=== PATIENT | female | born 1975 | race Native Hawaiian/Other Pacific Islander ===

== ENCOUNTER → 2016-12-09 | Outpatient (CLI) | payer BC ==
--- NOTE | 2016-12-09 11:58 | ECHOS ---
DATE OF SERVICE: 12/09/2016 AGE: 41Y SEX: F HT: 62" WT: 216 lbs. Protocol Dylan: X Others: Stress Echo Stage: 3 Dur. of Exercise: 6:45 *Heart Rate Blood Pressure *Rest: 81 Rest: 146/80 * *Max. Achieved: 141 Maximum BP: 213/74 85% PMHR: 151 100% PMHR: 178 *METS: 7.7 INDICATIONS: Chest pain. MEDICATIONS: Januvia, lisinopril, atenolol, hydrochlorothiazide, pioglitazone. Baseline EKG revealed a normal sinus rhythm without significant ST-T changes. There was some nonspecific T-wave flattening in leads V1 to V3 with poor R-wave progression. Patient walked on a standard Dylan protocol for 6 minutes 45 seconds. Resting heart rate was 80 beats per minute. Blood pressure was 146/80. With exercise, she had a hypertensive response and a peak blood pressure was 213/74. Her maximal heart rate was 141 beats, which is less than 85% of predicted maximal. She developed fatigue and shortness of breath and therefore stress test was stopped. She achieved about 80% of her predicted maximum heart rate. EKG did not reveal any ST segment changes to indicate ischemia. By EKG criteria, this is an inconclusive stress test because of inadequate chronotropic response with no evidence of ischemia at a heart rate of 80% of predicted maximal. Baseline echo images revealed normal wall motion and wall thickening of all segments. At peak exercise, there was good augmentation of left ventricular wall motion and wall thickening of all segments suggesting that there is no evidence of stress-induced ischemia. However, patient achieved only 80% of predicted maximal. FINAL IMPRESSION: 1. Inconclusive stress by EKG criteria without angina. 2. Inconclusive stress echocardiogram without evidence of ischemia at a heart rate of 80% of predicted maximal.
== END | disposition home or self-care (01) ==
LOC: RADNMMAIN 09:57
PROVIDERS: ATTEND Family Medicine
DX: R07.9 Chest pain, unspecified (principal)
CPT/HCPCS: 93017; 93350

== ENCOUNTER 2018-06-06 06:51 | Day surgery (SDC) | payer BC ==
[2018-06-05 09:46] VITALS: BMI 45.6
[~2018-06-06 06:51] MED LIST: LACTATED RINGERS 1,000 ML IV SCH
[2018-06-06 07:10] VITALS: TEMP 98.1
[2018-06-06 07:21] LABS: Glucose,Whole Blood 157 mg/dL (75-99)
[2018-06-06] MEDS ORDERED: MIDAZOLAM 2 MG/2 ML VIAL ONE (07:43)
[2018-06-06] MEDS ORDERED: LIDOCAINE 1% INJ 10MG/ML (20 ML MDV) ONE (07:43)
[2018-06-06] MEDS ORDERED: PROPOFOL 10 MG/ML 20 ML VIAL IV ONE (07:43)
[2018-06-06 08:12] VITALS: RESP 16
--- NOTE | 2018-06-06 08:15 | P.PCN ---
Date of Procedure: 06/06/18 Procedure(s) Performed: Procedure: Total colonoscopy. Preoperative diagnosis: Suspected diverticulitis. Postoperative diagnosis: Exam within normal limits. Preparation: HalfLytely prep. Sedation: Was provided by anesthesia. Brief clinical history: The patient is a 43-year-old female who is referred for this evaluation because of abdominal pain is for suspected diverticulitis. She had no prior colonoscopy. She had some changes in bowel habits with occasional loose stools but no bleeding or other alarm symptoms. No family history of colon cancer. Procedure: With the patient on her left lateral decubitus position and after informed consent and adequate sedation, the perianal area was inspected and it did not show any fissures or fistulas. There were no masses felt on digital rectal examination. The Olympus CFQ 160L video colonoscope was then inserted in the rectum in the usual fashion and advanced to the cecum. The mucosa appeared healthy. No polyps or tumors were seen. No obvious diverticular disease or other pathology. I retroflexed the endoscope in the rectum before the endoscope was withdrawn. The patient tolerated the procedure well. Plan: The patient was reassured. Will continue dietary measures and symptomatic treatment. Further plans based on her course. For screening for colon cancer, I recommended repeat exam in 10 years.
[2018-06-06 08:52] VITALS: BP 138/82; PULSE 54
== END 2018-06-06 09:05 | disposition home or self-care (01) ==
LOC: ORWHC2ENDO 06:51
DX: R10.9 Unspecified abdominal pain (principal); E11.9 Type 2 diabetes mellitus without complications; I10 Essential (primary) hypertension; Z79.84 Long term (current) use of oral hypoglycemic drugs; Z79.899 Other long term (current) drug therapy
CPT/HCPCS: 81025; 45378; J2250; J2001; J2704

== ENCOUNTER → 2019-01-05 | Outpatient (CLI) | payer BC ==
--- NOTE | 2019-01-05 10:21 | CT ---
EXAMINATION TYPE: CT abdomen pelvis wo con DATE OF EXAM: 01/05/2019 HISTORY: Right ovarian cyst and dysuria per order. Right lower quadrant pain per patient. CT DLP: 917.6 mGycm. Automated Exposure Control for Dose Reduction was Utilized. TECHNIQUE: CT scan of the abdomen and pelvis is performed without oral or IV contrast. COMPARISON: Abdominal and pelvic ultrasound February 10, 2018 FINDINGS: Within the limitations of a non-contrast study, the following observations are made. LUNG BASES: No significant abnormality is appreciated. LIVER/GB: No significant abnormality is appreciated. PANCREAS: No significant abnormality is seen. SPLEEN: No significant abnormality is seen. ADRENALS: No significant abnormality is seen. KIDNEYS: No renal calculi or hydronephrosis is present bilaterally. No intraluminal calculus is seen in poorly distended bladder on current study. BOWEL: Normal-appearing appendix is seen from base of cecum in the upper right pelvis extending media lly. There is no suspicious small or large bowel dilatation on current study. GENITAL ORGANS: Anteverted uterus is seen. Both ovaries are present and not strictly enlarged in size . There is some prominence of the lower uterine segment and cervix near axial image 128 should be cor related with direct physical exam and Pap smear LYMPH NODES: No greater than 1cm abdominal or pelvic lymph nodes are appreciated. OSSEOUS STRUCTURES: No significant abnormality is seen. OTHER: Horizontal density over the lower pelvis coronal image 29 likely reflects scar. IMPRESSION: 1. No renal stones or hydronephrosis is seen bilaterally. 2. Ovaries normal in size on current study without suspicious adnexal mass. 3. Prominence of lower uterine segment/cervix should be correlated with physical exam and/or Pap smea r, otherwise unremarkable study.
== END | disposition home or self-care (01) ==
LOC: RADCTMAIN 06:39
PROVIDERS: ATTEND Family Medicine
DX: R30.0 Dysuria (principal)
CPT/HCPCS: 74176

== ENCOUNTER → 2019-01-30 | Outpatient (CLI) | payer BC ==
--- NOTE | 2019-01-31 17:52 | ECHOF ---
Referral Reason:I10 Essential hypertension,I16.0 Hypertensive urge MEASUREMENTS -------- HEIGHT: 175.3 cm WEIGHT: 95.3 kg BP: RVIDd: 3.1 cm (< 3.3) IVSd: 0.9 cm (0.6 - 1.1) LVIDd: 3.9 cm (3.9 - 5.3) LVPWd: 1.0 cm (0.6 - 1.1) IVSs: 1.1 cm LVIDs: 2.6 cm LVPWs: 1.2 cm LAESV Index (A-L): 23.16 ml/m Ao Diam: 3.6 cm (2.0 - 3.7) AV Cusp: 1.9 cm (1.5 - 2.6) LA Diam: 2.9 cm (2.7 - 3.8) EPSS: 1.0 cm MV E Patricio: 0.58 m/s MV DecT: 323 ms MV A Patricio: 0.91 m/s MV E/A Ratio: 0.63 RAP: 5.00 mmHg RVSP: 9.69 mmHg MV EF SLOPE: 54.23 mm/s (70 - 150) MV EXCURSION: 1.41 cm (> 18.000) FINDINGS -------- Sinus rhythm. This was a technically adequate study. The left ventricular size is normal. There is mild concentric left ventricular hypertrophy. Overa ll left ventricular systolic function is normal with, an EF between 55 - 60 %. The right ventricle is normal in size and function. Normal LA size by volume 22+/-6 ml/m2. The right atrium is normal in size. There is mild aortic valve sclerosis. There is no evidence of aortic regurgitation. There is no e vidence of aortic stenosis. The mitral valve leaflets are mildly thickened. There is trace to mild mitral regurgitation. Trace tricuspid regurgitation present. Right ventricular systolic pressure is normal at < 35 mmHg. There is no evidence of pulmonary hypertension. The pulmonic valve was not well visualized. The aortic root size is normal. Normal inferior vena cava with normal inspiratory collapse consistent with estimated right atrial pre ssure of 5 mmHg. There is no pericardial effusion. CONCLUSIONS -------- 1. Sinus rhythm. 2. This was a technically adequate study. 3. The left ventricular size is normal. 4. There is mild concentric left ventricular hypertrophy. 5. Overall left ventricular systolic function is normal with, an EF between 55 - 60 %. 6. Normal LA size by volume 22+/-6 ml/m2. 7. There is mild aortic valve sclerosis. 8. The mitral valve leaflets are mildly thickened. 9. There is trace to mild mitral regurgitation. 10. Trace tricuspid regurgitation present. 11. Right ventricular systolic pressure is normal at < 35 mmHg. 12. There is no evidence of pulmonary hypertension. 13. The pulmonic valve was not well visualized. 14. The aortic root size is normal. 15. There is no pericardial effusion. TRUCK SWITCHER: Sravan Haque RDCS
== END ==
LOC: RADECHMAIN 13:07
PROVIDERS: ATTEND Family Medicine
DX: I11.9 Hypertensive heart disease without heart failure (principal); I34.0 Nonrheumatic mitral (valve) insufficiency; I35.8 Other nonrheumatic aortic valve disorders
CPT/HCPCS: 93306

== ENCOUNTER → 2019-12-25 | Outpatient (CLI) | payer BC ==
--- NOTE | 2019-12-25 15:08 | US ---
EXAMINATION TYPE: US kidneys/renal and bladder DATE OF EXAM: 12/25/2019 COMPARISON: CT 01/05/19, US 02/10/18 CLINICAL HISTORY: N39.0 Urinary tract infection, site not specified. EXAM MEASUREMENTS: Right Kidney: 13.6 x 6.1 x 5.0 cm Left Kidney: 12.5 x 6.3 x 5.5 cm Post Void Residual Volume: 0 mL Right Kidney: No hydronephrosis or masses seen Left Kidney: No hydronephrosis or masses seen Bladder: Some internal debris Bilateral Jets seen: Yes Normal Post Void Residual: Yes There is no evidence for hydronephrosis at this point in time. No nephrolithiasis is seen. No mario alberto s are identified. The urinary bladder is somewhat difficult to visualize and appears to have interna l debris. Bilateral ureteral jets are seen. IMPRESSION: Internal debris within the urinary bladder, likely on the basis of this patient's known c ystitis. No hydronephrosis or nephrolithiasis.
== END | disposition home or self-care (01) ==
LOC: RADUSWWP 11:07
PROVIDERS: ATTEND Urology
DX: N39.0 Urinary tract infection, site not specified (principal)
CPT/HCPCS: 76770

== ENCOUNTER 2023-04-03 12:51 | Emergency (ER) | payer BC ==
[2023-04-03 13:02] VITALS: RESP 18
[2023-04-03 13:34] LABS: Appearance,Urine Clear (Clear); Bilirubin,Urine Negative (Negative); Blood,Urine Negative (Negative); Color,Urine Light Yellow; Glucose,Urine (UA) Negative (Negative); Ketones,Urine Negative (Negative); Leukocyte Esterase,Urine Negative (Negative); Nitrite,Urine Negative (Negative); Protein,Urine Negative (Negative); Specific Gravity,Urine 1.005 (1.001-1.035); Urobilinogen,Urine <2.0 mg/dL (<2.0)
[2023-04-03] MEDS ORDERED: ORPHENADRINE 30 MG/ML 2 ML VIAL IVP STA (13:46)
[2023-04-03] MEDS ORDERED: KETOROLAC 15 MG/ML 1 ML VIAL IVP STA (13:46)
--- NOTE | 2023-04-03 13:56 | ED ---
Abdominal Pain HPI - General Chief Complaint: Abdominal Pain Stated Complaint: R thigh pain Time Seen by Provider: 04/03/23 13:35 Source: patient, RN notes reviewed Mode of arrival: ambulatory Limitations: no limitations - History of Present Illness Initial Comments: This is a 48-year-old female who presents to the emergency department for right groin pain. States that this started 2-3 days ago. Yesterday she started to develop diarrhea, but believes that this may be related to the new diabetic medication she just started. Pain is described as sharp and she has difficulty moving her right leg because of this. She denies taking anything to treat her symptoms. Denies any history of similar symptoms the past. Denies any injuries or recent strenuous activities. Denies any fevers, chills, sore throat, cough, dyspnea, chest pain, pal pitations, abdominal pain, nausea, vomiting, diarrhea, back pain, or headaches. MD Complaint: other (Right groin pain) Onset/Timin -: days(s) - Related Data Home Medications Medication Instructions Recorded Confirmed Atenolol (Unknown Dose) 50 mg PO DAILY 06/05/18 06/06/18 Ibuprofen [Motrin Ib] 800 mg PO BID PRN 06/05/18 06/06/18 Lisinopril-Hctz 20-25 mg 1 tab PO DAILY 06/05/18 06/06/18 [Zestoretic 20-25] metFORMIN HCL [Glucophage] 1,000 mg PO BID 06/05/18 06/06/18 Previous Rx's Medication Instructions Recorded Baclofen 5 mg PO TID PRN #20 tablet 04/03/23 Ketorolac [Toradol] 10 mg PO Q6HR PRN #12 tab 04/03/23 Allergies Allergy/AdvReac Type Severity Reaction Status Date / Time No Known Allergies Allergy Verified 04/03/23 13:02 Review of Systems ROS Statement: Those systems with pertinent positive or pertinent negative responses have been documented in the HPI. ROS Other: All systems not noted in ROS Statement are negative. Past Medical History Past Medical History: Diabetes Mellitus, Hypertension Additional Past Medical History / Comment(s): STATES PAIN RIGHT SIDE ABDOMEN. History of Any Multi-Drug Resistant Organisms: None Reported Past Surgical History: Section, Uterine Ablation Additional Past Surgical History / Comment(s): D & C Past Anesthesia/Blood Transfusion Reactions: No Reported Reaction Past Psychological History: No Psychological Hx Reported Smoking Status: Never smoker Past Alcohol Use History: None Reported Past Drug Use History: None Reported - Past Family History Mother Family Medical History: No Reported History General Exam Limitations: no limitations General appearance: alert, in distress Head exam: Present: atraumatic, normocephalic, normal inspection Respiratory exam: Present: normal lung sounds bilaterally. Absent: respiratory distress, wheezes, rales, rhonchi, stridor Cardiovascular Exam: Present: regular rate, normal rhythm, normal heart sounds. Absent: systolic murmur, diastolic murmur, rubs, gallop, clicks GI/Abdominal exam: Present: soft, tenderness (Right groin), normal bowel sounds. Absent: distended, guarding, rebound, rigid, hernia Neurological exam: Present: alert, oriented X3, CN II-XII intact Psychiatric exam: Present: normal affect, normal mood Skin exam: Present: warm, dry, intact, normal color. Absent: rash Course Vital Signs 04/03/23 04/03/23 04/03/23 12:59 15:01 16:02 Temperature 98 F 64 F L Pulse Rate 68 99 67 Respiratory 18 18 Rate Blood Pressure 125/85 103/72 108/70 O2 Sat by Pulse 98 99 Oximetry Medical Decision Making - Medical Decision Making This is a 48-year-old female who presents to the emergency department for right groin pain. Was pt. sent in by a medical professional or institution? @ -No Did you speak to anyone other than the patient for history? @ -No Did you review nursing and triage notes? @ -I disagree with how long the pain has been there, patient told me it has only been there for 2-3 days. Were old charts reviewed? @ -No Differential Diagnosis? @ -Differential Groin Pain: Hernia, muscle strain, UTI, ureteral calculus, this is not meant to be an all- inclusive list. What testing was considered but not performed? (CT, X-rays, U/S, labs)? Why? @ -None What meds were considered but not given? Why? @ -None Did you discuss the management of the patient with other professionals? @ -No Did you reconcile home meds? @ -No Was smoking cessation discussed for >3mins.? @ -No Was critical care preformed (if so, how long)? @ -No Were there social determinants of health that impacted care today? How? (Homelessness, low income, unemployed, alcoholism, drug addiction, t ransportation, low edu. Level, literacy, decrease access to med. care, fci, rehab)? @ -No Was there de-escalation of care discussed even if they declined? (Discuss DNR or withdrawal of care, Hospice)? @ -No What co-morbidities impacted this encounter? (DM, HTN, Smoking, COPD, CAD, Cancer, CVA, Hep., AIDS, mental health diagnosis, sleep apnea, morbid obesity)? @ -Morbid obesity Was patient admitted / discharged? @ -Discharged. Lab work obtained and found to be nonactionable. Urinalysis negative for signs of infection. Ultrasound of the right groin obtained revealing no acute findings. Symptoms were well controlled with Toradol and Norflex. Based on the location and description of her symptoms, this is most likely related to a muscle strain. Prescription for Toradol and baclofen provided with dosing instructions reviewed. Patient is instructed to take the Toradol with Tylenol if needed and avoid any other [id number] anti- inflammatories such as ibuprofen with the Toradol. Advised that the baclofen is sedating and she should avoid driving or operating machinery when taking this. She will otherwise follow up with her PCP for reevaluation of symptoms. Undiagnosed new problem with uncertain prognosis? @ -None Drug Therapy requiring intensive monitoring for toxicity (Heparin, Nitro, Insulin, Cardizem)? @ -None Were any procedures done? @ -None Diagnosis/symptom? @ -Right groin strain Acute, or Chronic, or Acute on Chronic? @ -Acute Uncomplicated (without systemic symptoms) or Complicated (systemic symptoms)? @ -Uncomplicated Side effects of treatment? @ -None Exacerbation, Progression, or Severe Exacerbation] @ -Not applicable Poses a threat to life or bodily function? @ -No Return precautions reviewed in depth, the patient is instructed to return to the emergency department with any new, worsening, or concerning symptoms. Patient verbalized understanding. This case was discussed in detail with the attending ED physician, Dr. Lujan. Presentation, findings, and treatment plan discussed in detail as well. - Lab Data Result diagrams: 04/03/23 13:54 04/03/23 13:54 Lab Results 04/03/23 04/03/23 04/03/23 Range/Units 13:17 13:54 13:54 WBC 5.0 (3.8-10.6) k/uL RBC 4.98 (3.80-5.40) m/uL Hgb 12.3 (11.4-16.0) gm/dL Hct 39.3 (34.0-46.0) % MCV 78.9 L (80.0-100.0) fL MCH 24.7 L (25.0-35.0) pg MCHC 31.3 (31.0-37.0) g/dL RDW 14.8 (11.5-15.5) % Plt Count 238 (150-450) k/uL MPV 7.8 Neutrophils % 69 % Lymphocytes % 22 % Monocytes % 4 % Eosinophils % 3 % Basophils % 1 % Neutrophils # 3.4 (1.3-7.7) k/uL Lymphocytes # 1.1 (1.0-4.8) k/uL Monocytes # 0.2 (0-1.0) k/uL Eosinophils # 0.1 (0-0.7) k/uL Basophils # 0.0 (0-0.2) k/uL Sodium 139 (137-145) mmol/L Potassium 3.3 L (3.5-5.1) mmol/L Chloride 102 (98-107) mmol/L Carbon Dioxide 27 (22-30) mmol/L Anion Gap 10 mmol/L BUN 12 (7-17) mg/dL Creatinine 0.39 L (0.52-1.04) mg/dL Est GFR (CKD-EPI)AfAm >90 (>60 ml/min/1.73 sqM) Est GFR (CKD-EPI)NonAf >90 (>60 ml/min/1.73 sqM) Glucose 145 H (74-99) mg/dL Plasma Lactic Acid Tenzin (0.7-2.0) mmol/L Calcium 9.5 (8.4-10.2) mg/dL Total Bilirubin 0.5 (0.2-1.3) mg/dL AST 24 (14-36) U/L ALT 36 H (4-34) U/L Alkaline Phosphatase 104 (38-126) U/L Total Protein 7.0 (6.3-8.2) g/dL Albumin 4.1 (3.5-5.0) g/dL Urine Color Light Yellow Urine Appearance Clear (Clear) Urine pH 5.0 (5.0-8.0) Ur Specific [place] 1.005 (1.001-1.035) Urine Protein Negative (Negative) Urine Glucose (UA) Negative (Negative) Urine Ketones Negative (Negative) Urine Blood Negative (Negative) Urine Nitrite Negative (Negative) Urine Bilirubin Negative (Negative) Urine Urobilinogen <2.0 (<2.0) mg/dL Ur Leukocyte Esterase Negative (Negative) 04/03/23 Range/Units 13:54 WBC (3.8-10.6) k/uL RBC (3.80-5.40) m/uL Hgb (11.4-16.0) gm/dL Hct (34.0-46.0) % MCV (80.0-100.0) fL MCH (25.0-35.0) pg MCHC (31.0-37.0) g/dL RDW (11.5-15.5) % Plt Count (150-450) k/uL MPV Neutrophils % % Lymphocytes % % Monocytes % % Eosinophils % % Basophils % % Neutrophils # (1.3-7.7) k/uL Lymphocytes # (1.0-4.8) k/uL Monocytes # (0-1.0) k/uL Eosinophils # (0-0.7) k/uL Basophils # (0-0.2) k/uL Sodium (137-145) mmol/L Potassium (3.5-5.1) mmol/L Chloride (98-107) mmol/L Carbon Dioxide (22-30) mmol/L Anion Gap mmol/L BUN (7-17) mg/dL Creatinine (0.52-1.04) mg/dL Est GFR (CKD-EPI)AfAm (>60 ml/min/1.73 sqM) Est GFR (CKD-EPI)NonAf (>60 ml/min/1.73 sqM) Glucose (74-99) mg/dL Plasma Lactic Acid Tenzin 1.3 (0.7-2.0) mmol/L Calcium (8.4-10.2) mg/dL Total Bilirubin (0.2-1.3) mg/dL AST (14-36) U/L ALT (4-34) U/L Alkaline Phosphatase (38-126) U/L Total Protein (6.3-8.2) g/dL Albumin (3.5-5.0) g/dL Urine Color Urine Appearance (Clear) Urine pH (5.0-8.0) Ur Specific [place] (1.001-1.035) Urine Protein (Negative) Urine Glucose (UA) (Negative) Urine Ketones (Negative) Urine Blood (Negative) Urine Nitrite (Negative) Urine Bilirubin (Negative) Urine Urobilinogen (<2.0) mg/dL Ur Leukocyte Esterase (Negative) - Radiology Data Radiology results: report reviewed, image reviewed Disposition Clinical Impression: Strain of right groin Disposition: HOME SELF-CARE Instructions (If sedation given, give patient instructions): Groin Strain (ED), Groin Pain (ED) Additional Instructions: Return to the emergency department with any new, worsening, or concerning symptoms. Take either the ibuprofen or Toradol for pain relief. Do not take them together. You may take either of them with Tylenol. Take the muscle relaxant up to 3 times daily. Be aware that this may make you sleepy and you should avoid driving or operating machinery when taking this. Follow up with your primary care provider in 1-2 days. Prescriptions: Baclofen 5 mg PO TID PRN #20 tablet PRN Reason: Pain Ketorolac [Toradol] 10 mg PO Q6HR PRN #12 tab PRN Reason: Pain Is patient prescribed a controlled substance at d/c from ED?: No Referrals: Serenity Webb, DO [Primary Care Provider] - 1-2 days
[2023-04-03 15:06] VITALS: TEMP 64
[2023-04-03 15:07] LABS: Basophils % (A) 1 %; Eosinophils # (A) 0.1 k/uL (0-0.7); Eosinophils % (A) 3 %; HCT 39.3 % (34.0-46.0); HGB 12.3 gm/dL (11.4-16.0); Lymphocytes # (A) 1.1 k/uL (1.0-4.8); Lymphocytes % (A) 22 %; MCH 24.7 pg (25.0-35.0); MCHC 31.3 g/dL (31.0-37.0); MCV 78.9 fL (80.0-100.0); Mean Platelet Volume 7.8; Monocytes # (A) 0.2 k/uL (0-1.0); Monocytes % (A) 4 %; Neutrophils # (A) 3.4 k/uL (1.3-7.7); Neutrophils % (A) 69 %; Platelet Count 238 k/uL (150-450); RBC 4.98 m/uL (3.80-5.40); RDW 14.8 % (11.5-15.5)
--- NOTE | 2023-04-03 15:32 | US ---
EXAMINATION TYPE: US groin RT DATE OF EXAM: 04/03/2023 COMPARISON: CT abdomen pelvis 01/05/2019 CLINICAL INDICATION: Female, 48 years old with history of Pain; Pt states right groin pain x 1 week FINDINGS/IMPRESSION: No abnormality visualized within right groin to account for pt's symptoms. Multiple valsalva maneuver images taken without evidence for hernia. No lymphadenopathy identified.
[2023-04-03 15:35] LABS: ALT 36 U/L (4-34); AST 24 U/L (14-36); African American GFR (CKD) >90 (>60 ml/min/1.73 sqM); Albumin 4.1 g/dL (3.5-5.0); Alkaline Phosphatase 104 U/L (38-126); Anion Gap 10 mmol/L; Blood Urea Nitrogen 12 mg/dL (7-17); Calcium 9.5 mg/dL (8.4-10.2); Carbon Dioxide 27 mmol/L (22-30); Chloride 102 mmol/L (98-107); Glucose 145 mg/dL (74-99); Non-African American GFR(CKD) >90 (>60 ml/min/1.73 sqM); Potassium 3.3 mmol/L (3.5-5.1); Sodium 139 mmol/L (137-145); Total Bilirubin 0.5 mg/dL (0.2-1.3)
[2023-04-03] MEDS ORDERED: ACET/COD 300 MG/30 MG STARTER PACK 6 TAB BTL PO STA (15:55)
[2023-04-03] MEDS ORDERED: CYCLOBENZAPRINE 10MG STARTER 3 TAB BTL PO STA (15:55)
[2023-04-03] MEDS ORDERED: IBUPROFEN 600 MG STARTER PACK 4 TAB BTL PO STA (15:55)
[2023-04-03 16:06] VITALS: BP 108/70; PULSE 67
== END 2023-04-03 16:23 | disposition home or self-care (01) ==
LOC: EC 12:51
DX: S39.011A Strain of muscle, fascia and tendon of abdomen, initial encounter (principal); E11.9 Type 2 diabetes mellitus without complications; I10 Essential (primary) hypertension; Z79.84 Long term (current) use of oral hypoglycemic drugs; Z79.899 Other long term (current) drug therapy; X58.XXXA Exposure to other specified factors, initial encounter
CPT/HCPCS: 36415; 80053; 83605; 85025; 81003; 76882; 99284; 96374; 96375; J2360; J1885